=== PATIENT | female | born 1990 | race Caucasian/White ===

== ENCOUNTER 2017-03-29 01:50 | Emergency (ER) | payer MEDICAID ==
[~2017-03-29] VITALS: Ht 157.5 cm; Wt 86.5 kg
[~2017-03-29 01:50] MED LIST: ACET325T33 PO; IBUP800T25 PO; PERCOCET PO; PREN1TAB17 PO; PREN1TAB62 PO
[2017-03-29 02:00] VITALS: Ht 157.5 cm; Wt 86.5 kg
--- NOTE | 2017-03-29 02:53 | RADRPT ---
PROCEDURE: US OB. CLINICAL INDICATION: Pain. TECHNIQUE: Multiple sonographic images of the pelvis were obtained. Transabdominal imaging only w as performed. The images were reviewed on a PACS workstation. COMPARISON: None. FINDINGS: Single live intrauterine is identified. Cardiac activity is present with 136 beats per mi nute. There is a breech presentation. Measurements: BPD = 16 weeks 2 days. HC = 16 weeks 0 days. AC = 16 weeks 6 days. FL = 15 weeks 6 days. Estimated gestational age of approximately 16 weeks 2 days. The estimated date of delivery is 09/11/2017. The EFW = 152 g which is at the 72nd percentile. The placenta is posterior. There is a grossly normal amount of amniotic fluid with a MVP = 5.4 cm. IMPRESSION: Single live intrauterine gestation of approximately 16 weeks 2 days. RPTAT: HMVK .Romie Salcido MD, Date Time Electronically viewed and signed by .Romie Salcido MD, on 03/29/2017 02:53 .K/
[2017-03-29 03:09] LABS: BASOPHILS % 0.4 % (0.0-2.0); EOSINOPHILS # 0.1 10^3/ul (0.0-0.5); HEMATOCRIT 35.4 % (37.0-47.0); HEMOGLOBIN 12.6 g/dl (12.0-16.0); LYMPHOCYTES # 2.3 10^3/ul (0.8-2.9); LYMPHOCYTES % 28.5 % (15.0-51.0); MEAN CORPUSCULAR HEMOGLOBIN 32.1 pg (29.0-33.0); MEAN CORPUSCULAR HGB CONC 35.6 g/dl (32.0-37.0); MEAN CORPUSCULAR VOLUME 90.1 fl (82.0-101.0); MEAN PLATELET VOLUME 11.2 fl (7.4-10.4); MONOCYTE # 0.4 10^3/ul (0.3-0.9); MONOCYTES % 4.8 % (0.0-11.0); PLATELET COUNT 176 10^3/UL (140-415); RED BLOOD COUNT 3.93 10^6/ul (4.20-5.40); RED CELL DISTRIBUTION WIDTH 12.7 % (11.5-14.5); WHITE BLOOD COUNT 7.9 10^3/ul (4.8-10.8)
[2017-03-29 03:48] LABS: ADD UMIC YES; UR ASCORBIC ACID NEGATIVE (NEGATIVE); UR BACTERIA FEW /HPF (NONE SEEN); UR BILIRUBIN (Dip) NEGATIVE (NEGATIVE); UR BLOOD (Dip) NEGATIVE (NEGATIVE); UR CLARITY SLIGHTLY CLOUDY (CLEAR); UR COLOR YELLOW (YELLOW); UR GLUCOSE (Dip) NEGATIVE (NEGATIVE); UR KETONES (Dip) NEGATIVE (NEGATIVE); UR LEUKOCYTE ESTERASE (Dip) 2+ Leu/ul (NEGATIVE); UR NITRITE (Dip) NEGATIVE (NEGATIVE); UR RBC 1 /HPF (0-5); UR SPECIFIC GRAVITY (Dip) 1.013 (1.003-1.030); UR SQUAMOUS EPITHELIAL CELL FEW /HPF (FEW); UR TOTAL PROTEIN (Dip) NEGATIVE (NEGATIVE); UR UROBILINOGEN (Dip) NEGATIVE (NEGATIVE)
[2017-03-29] MEDS ORDERED: NITR-58 PO (04:02)
[2017-03-29] MEDS ORDERED: ACET500C5 PO (04:02)
--- NOTE | 2017-03-29 04:12 | ERD ---
ER Documentation Chief Complaint Date/Time DATE: 03/29/17 TIME: 04:09 Chief Complaint right pelvic pain,16t weeks HPI 26-year-old female who is 16 weeks A0 presents with right-sided pelvic pain that radiates to her left side that started tonight. She states that is sharp, intermittent, worse with any movement. She denies any fevers, chills, vomiting or diarrhea. She denies vaginal bleeding or pelvic pain. ROS All systems reviewed and are negative except as per history of present illness. Medications Home Meds Active Scripts Acetaminophen* (Tylophen*) 500 Mg Capsule, 1 CAP PO Q6H Y for PAIN AND OR ELEVATED TEMP, #20 CAP Prov:CHIKIS VILLAR PA-C 03/29/17 Nitrofurantoin Monohyd Macrocr* (Macrobid*) 100 Mg Capsr, 100 MG PO BID for 7 Days, CAP Prov:CHIKIS VILLAR PA-C 03/29/17 Acetaminophen* (Tylenol*) 325 Mg Tablet, 1 TAB PO Q6 Y for PAIN AND OR ELEVATED TEMP, #20 TAB Prov:MICHAEL BALDERAS PA-C 11/03/15 Oxycodone Hcl/Acetaminophen (Percocet) 1 Tab Tab, 2 TAB PO Q4H Y for PAIN LEVEL 6-10, #30 TAB 0 Refills Prov:GAEL MARTIN MD 10/16/15 Ibuprofen* (Ibuprofen*) 800 Mg Tab, 800 MG PO Q8, #20 TAB 0 Refills Prov:GAEL MARTIN MD 10/16/15 Reported Medications Vit-Iron Fumarate-FA ( Vitamin Tablet) 1 Each Tablet, 1 TAB PO DAILY, TAB 10/02/15 Vit-Iron Fumarate-FA ( Tablet) 1 Each Tablet, 1 TAB PO DAILY, TAB 07/11/15 Allergies Allergies: Coded Allergies: No Known Allergy (Unverified , 10/09/15) PMhx/Soc Medical and Surgical Hx: pt denies Medical Hx History of Surgery: Yes () Anesthesia Reaction: No Hx Neurological Disorder: No Hx Respiratory Disorders: No Hx Cardiac Disorders: No Hx Psychiatric Problems: No Hx Miscellaneous Medical Probl: No Hx Alcohol Use: No Hx Substance Use: No Hx Tobacco Use: No Smoking Status: Never smoker Physical Exam Vitals Vital Signs Date Time Temp Pulse Resp B/P Pulse Ox O2 Delivery O2 Flow Rate FiO2 03/29/17 02:00 97.3 73 18 112/63 99 Physical Exam General: Well-developed, well-nourished. The patient appears in no acute distress. HEENT: Head is normocephalic, atraumatic. No scleral icterus. Neck: Supple. Nontender. Lungs: Clear to auscultation. Normal air movement. Heart: Regular rate and rhythm. S1 and S2 are normal. No murmurs, gallops, or rubs. Abdomen: Soft, Right side is tender in the lower pelvic region, there is no rebound pain, no McBurney's tenderness nondistended. Bowel sounds are normoactive. Extremities: No clubbing or cyanosis. Normal pulses. Moving extremities x 4. No weakness. Neurologic: Alert and oriented 3. No focal deficits. Skin: Normal turgor. No rash or lesions. Result Diagram: 03/29/17 0235 Results 24 hrs Laboratory Tests Test 03/29/17 02:35 03/29/17 02:38 White Blood Count 7.910^3/ul Red Blood Count 3.9310^6/ul Hemoglobin 12.6g/dl Hematocrit 35.4% Mean Corpuscular Volume 90.1fl Mean Corpuscular Hemoglobin 32.1pg Mean Corpuscular Hemoglobin Concent 35.6g/dl Red Cell Distribution Width 12.7% Platelet Count 40095^3/UL Mean Platelet Volume 11.2fl Neutrophils % 65.0% Lymphocytes % 28.5% Monocytes % 4.8% Eosinophils % 1.0% Basophils % 0.4% Nucleated Red Blood Cells % 0.0/100WBC Neutrophils # (Manual) 5.210^3/ul Lymphocytes # 2.310^3/ul Monocytes # 0.410^3/ul Eosinophils # 0.110^3/ul Basophils # 0.010^3/ul Nucleated Red Blood Cells # 0.010^3/ul Urine Color YELLOW Urine Clarity SLIGHTLY CLOUDY Urine pH 6.0 Urine Specific [place] 1.013 Urine Ketones NEGATIVEmg/dL Urine Nitrite NEGATIVEmg/dL Urine Bilirubin NEGATIVEmg/dL Urine Urobilinogen NEGATIVEmg/dL Urine Leukocyte Esterase 2+Ronaldo/ul Urine Microscopic RBC 1/HPF Urine Microscopic WBC 2/HPF Urine Squamous Epithelial Cells FEW/HPF Urine Bacteria FEW/HPF Urine Hemoglobin NEGATIVEmg/dL Urine Glucose NEGATIVEmg/dL Urine Total Protein NEGATIVEmg/dl DIAGNOSTIC IMAGING REPORT Patient: EMMA LOPEZ : 1990 Age: 26 Sex: F MR #: [id number] [facility] #: [id number] DOS: 03/29/17 0222 Ordering MD: CHIKIS VILLAR PA-C Location: [facility] Room/Bed: PROCEDURE: US OB. CLINICAL INDICATION: Pain. TECHNIQUE: Multiple sonographic images of the pelvis were obtained. Transabdominal imaging only was performed. The images were reviewed on a PACS workstation. COMPARISON: None. FINDINGS: Single live intrauterine is identified. Cardiac activity is present with 136 beats per minute. There is a breech presentation. Measurements: BPD = 16 weeks 2 days. HC = 16 weeks 0 days. AC = 16 weeks 6 days. FL = 15 weeks 6 days. Estimated gestational age of approximately 16 weeks 2 days. The estimated date of delivery is 09/11/2017. The EFW = 152 g which is at the 72nd percentile. The placenta is posterior. There is a grossly normal amount of amniotic fluid with a MVP = 5.4 cm. IMPRESSION: Single live intrauterine gestation of approximately 16 weeks 2 days. RPTAT: HMVK .Romie Salcido MD, Date Time Electronically viewed and signed by .Romie Salcido MD, MD on 03/29/2017 02:53 .K/ Procedures/MDM 26-year-old female presents with a single live intrauterine at 16 weeks, with evidence of normal IUP, normal amniotic fluid. There is no evidence of placenta previa, placenta abruptio. Patient is hemodynamically stable. Urine is 2+ leukocyte esterase, will be treated given her , for urinary tract infection. Suspicion for acute appendicitis, ovarian torsion , PID, cervicitis, diverticulitis, bowel obstruction, acute hepatobiliary process is low. Departure Diagnosis: Primary Impression: UTI (urinary tract infection) Additional Impression: Pelvic pain during Condition: Good Patient Instructions: Understanding Urinary Tract Infections (UTIs) Additional Instructions: Patient was advised to follow-up with their OB in 3-4 days for a recheck examination. If they were to develop any worsening symptoms sooner, including heavy vaginal bleeding or pelvic pain, they are to return to the ER for further evaluation. CHIKIS VILLAR PA-C Mar 29, 2017 04:12
[2017-03-29 04:15] VITALS: BP 110/58; PULSE 75; RESP 17; TEMP 97.4
== END 2017-03-29 04:15 | disposition home or self-care (01) ==
LOC: FTE 01:50
DX: O23.42 Unspecified infection of urinary tract in pregnancy, second trimester (principal); R10.2 Pelvic and perineal pain; Z3A.18 18 weeks gestation of pregnancy
CPT/HCPCS: 36415; 76805; 81001; 84702; 85025; Z7502

== ENCOUNTER 2017-06-16 17:12 | Outpatient (CLI) | payer MEDICAID ==
[~2017-06-16] VITALS: Ht 160 cm; Wt 92.4 kg
[~2017-06-16 17:12] MED LIST changes: +ACET500C5 PO; +NITR-58 PO
[2017-06-16 17:34] VITALS: Ht 160 cm; Wt 92.4 kg
[2017-06-16 17:35] VITALS: BP 111/57; PULSE 85; RESP 18
[2017-06-16] MEDS ORDERED: CALC600T24 PO (18:26)
[2017-06-16 19:25] LABS: BASOPHILS % 0.2 % (0.0-2.0); EOSINOPHILS # 0.1 10^3/ul (0.0-0.5); EOSINOPHILS % 0.6 % (0.0-7.0); HEMATOCRIT 32.1 % (37.0-47.0); HEMOGLOBIN 10.9 g/dl (12.0-16.0); LYMPHOCYTES # 1.6 10^3/ul (0.8-2.9); LYMPHOCYTES % 19.3 % (15.0-51.0); MEAN CORPUSCULAR HEMOGLOBIN 32.2 pg (29.0-33.0); MEAN CORPUSCULAR VOLUME 94.7 fl (82.0-101.0); MEAN PLATELET VOLUME 10.7 fl (7.4-10.4); MONOCYTE # 0.4 10^3/ul (0.3-0.9); MONOCYTES % 4.8 % (0.0-11.0); NEUTROPHIL # 6.2 10^3/ul (1.6-7.5); NEUTROPHILS % 74.7 % (39.0-77.0); PLATELET COUNT 161 10^3/UL (140-415); RED BLOOD COUNT 3.39 10^6/ul (4.20-5.40); RED CELL DISTRIBUTION WIDTH 13.5 % (11.5-14.5); WHITE BLOOD COUNT 8.3 10^3/ul (4.8-10.8)
[2017-06-16 19:30] LABS: ADD UMIC YES; UR ASCORBIC ACID NEGATIVE (NEGATIVE); UR BILIRUBIN (Dip) NEGATIVE (NEGATIVE); UR BLOOD (Dip) NEGATIVE (NEGATIVE); UR CLARITY SLIGHTLY CLOUDY (CLEAR); UR COLOR YELLOW (YELLOW); UR GLUCOSE (Dip) NEGATIVE (NEGATIVE); UR KETONES (Dip) NEGATIVE (NEGATIVE); UR LEUKOCYTE ESTERASE (Dip) TRACE Leu/ul (NEGATIVE); UR MUCUS FEW /HPF (NONE SEEN); UR NITRITE (Dip) NEGATIVE (NEGATIVE); UR RBC 2 /HPF (0-5); UR SPECIFIC GRAVITY (Dip) 1.029 (1.003-1.030); UR SQUAMOUS EPITHELIAL CELL FEW /HPF (FEW); UR TOTAL PROTEIN (Dip) NEGATIVE (NEGATIVE); UR UROBILINOGEN (Dip) 1+ mg/dL (NEGATIVE)
--- NOTE | 2017-06-16 19:58 | RADRPT ---
PROCEDURE: OB ultrasound for biophysical profile CLINICAL INDICATION: Pelvic pain. Biophysical profile. . TECHNIQUE: Multiple sonographic images of the pelvis were obtained. Transabdominal imaging was pe rformed. Transvaginal images were obtained to assess cervical length. The images were reviewed on a PACS workstation. COMPARISON: None FINDINGS: breathing movement = 2/2 tone = 2/2 motion = 2/2 BRITTA = 2/2 Single intrauterine gestation is identified in cephalic position. heart rate is 136 bpm. Plac enta is posterior without evidence for abruption or previa. BRITTA measures 12.2 cm, within normal garcia its. The cervix is closed and measures 3.3 cm in length IMPRESSION: 1. Single live intrauterine gestation. 2. Biophysical profile = 8. 3. BRITTA = 12.2 cm. RPTAT: HDWR .Clint Norton MD, Date Time Electronically viewed and signed by .Clint Norton MD, on 06/16/2017 19:58 .R/
--- NOTE | 2017-06-16 20:13 | PN ---
Triage Information Date/Time June 16 2017 Reason for visit: Complain of vaginal pressure with walking Weeks of Gestation 224 /Para 2 para 1 Diabetes: none Hypertention: none Additional information Most probably patient with round ligament syndrome Objective Vital Signs Date Time Temp Pulse Resp B/P Pulse Ox O2 Delivery O2 Flow Rate FiO2 06/16/17 17:35 98.1 85 18 111/57 Room Air Heart Rate: 140's Contractions: None Results/Medications Result Diagram: 06/16/170 Results 24 hrs Laboratory Tests Test 06/16/17 17:30 06/16/17 19:20 Urine Color YELLOW Urine Clarity SLIGHTLY CLOUDY A Urine pH 6.0 Urine Specific [place] 1.029 Urine Ketones NEGATIVE Urine Nitrite NEGATIVE Urine Bilirubin NEGATIVE Urine Urobilinogen 1+ H Urine Leukocyte Esterase TRACE A Urine Microscopic RBC 2 Urine Microscopic WBC 2 Urine Squamous Epithelial Cells FEW Urine Mucus FEW A Urine Hemoglobin NEGATIVE Urine Glucose NEGATIVE Urine Total Protein NEGATIVE White Blood Count 8.3 Red Blood Count 3.39 L Hemoglobin 10.9 L Hematocrit 32.1 L Mean Corpuscular Volume 94.7 Mean Corpuscular Hemoglobin 32.2 Mean Corpuscular Hemoglobin Concent 34.0 Red Cell Distribution Width 13.5 Platelet Count 161 Mean Platelet Volume 10.7 H Neutrophils % 74.7 Lymphocytes % 19.3 Monocytes % 4.8 Eosinophils % 0.6 Basophils % 0.2 Nucleated Red Blood Cells % 0.0 Neutrophils # 6.2 Lymphocytes # 1.6 Monocytes # 0.4 Eosinophils # 0.1 Basophils # 0.0 Nucleated Red Blood Cells # 0.0 Imaging Results Single live intrauterine gestation. Biophysical profile = 8/8. BRITTA = 12.2 cm. GAEL MARTIN MD Jun 16, 2017 20:13
--- NOTE | 2017-06-16 21:21 | TRIAGE ---
OB Triage Datetime Report Generated by CPN: 06/16/2017 21:20 Datetime: 06/16/2017 20:30 Stage of : OB Triage Labor Evaluation Frequency: NONE Monitor Mode: External Duration (sec)2399: NONE Resting Tone [place]: Relaxed Contraction Comments: PT DENIES CRAMPING OR UC'S. ABDOMEN SOFT UPON PALPATION. Heart Rate FHR Baseline Rate: 140 Monitor Mode: External US Variability: Moderate 6-25 bpm Accelerations: 15X15 Datetime: 06/16/2017 20:15 Stage of : OB Triage Datetime: 06/16/2017 20:14 Monitor Mode: External Datetime: 06/16/2017 20:06 Stage of : OB Triage Pain Assessment Pain Scale: 3 Pain Presence: Constant Pain Type: Pressure Pain Location: Perineum Datetime: 06/16/2017 20:05 Monitor Mode: External US Datetime: 06/16/2017 19:30 Stage of : OB Triage Labor Evaluation Frequency: NONE Monitor Mode: External Duration (sec)2399: NONE Resting Tone [place]: Relaxed Contraction Comments: PT DENIES UC'S OR CRAMPING. ABDOMEN SOFT UPON PALPATION. Heart Rate FHR Baseline Rate: 140 Monitor Mode: External US Variability: Moderate 6-25 bpm Accelerations: 15X15 Datetime: 06/16/2017 19:18 Monitor Mode: External Contraction Comments: ABDOMEN SOFT UPON PALPATION Datetime: 06/16/2017 18:30 Stage of : OB Triage Maternal Assessment Level of Consciousness: Fully Conscious Labor Evaluation Frequency: NONE Monitor Mode: External Resting Tone [place]: Relaxed Heart Rate FHR Baseline Rate: 135 Monitor Mode: External US Variability: Moderate 6-25 bpm Accelerations: 15X15 Decelerations: None Category: Category I Pain Assessment Pain Scale: 0 Pain Goal: 3 Vaginal Exam Membrane Status: Intact Vaginal Bleeding: None Datetime: 06/16/2017 18:02 Assessment Type: Triage Maternal Assessment Level of Consciousness: Fully Conscious DTR's/Clonus: DTRs 2+; No Clonus Headache: Denies Blurred Vision: No Respiratory Effort: Unlabored; Regular Rhythm; Equal Expansion Breath Sounds, Left: Clear and Equal Breath Sounds, Right: Clear and Equal Nausea/Vomiting: Denies RUQ Epigastric Pain: Denies Lower Extremities Edema: None Degree: None Upper Extremities Edema: None Degree: None Facial Edema: None Fall Risk Assessment History of Falling: (0) No Secondary Diagnosis: (0) No Ambulatory Aid: (0) Bedrest/Nurse Assist IV Therapy: (0) No Gait: (0) Normal/Bedrest/Immobile Mental Status: (0) Oriented to Own Ability Fall Score: 0 Fall Risk Score Definition: No Risk: No action required Datetime: 06/16/2017 18:00 Time of Arrival: 06/16/2017 17:04 EGA: 27.1 Arrived By: Ambulatory Arrived From: Home Chief Complaint: PT HERE C/O DFM, AND VAG. PAIN Movement: Present Contractions: Denies/Absent Rupture of Membranes: Denies Vaginal Bleeding: None Vaginal Discharge: Denies Recent Sexual Intercouse: Denies Abdominal Trauma: Not Applicable Patient Complaints: None Time Provider Notified: 06/16/2017 18:30 Provider Notified: LOKESH Initial Plan: CBC/UA/BPP/CVL Datetime: 06/16/2017 17:31 Monitor Mode: External Monitor Mode: External US
== END 2017-06-16 20:55 | disposition home or self-care (01) ==
LOC: OBT 17:12 → L-D 17:13 → OBT 18:10
PROVIDERS: ATTEND Obstetrics & Gynecology
DX: O26.892 Other specified pregnancy related conditions, second trimester (principal); R10.2 Pelvic and perineal pain; Z3A.22 22 weeks gestation of pregnancy
CPT/HCPCS: 76817; 76818; 81001; 85025; Z7500; G0463

== ENCOUNTER 2017-07-19 19:58 | Outpatient (CLI) | payer MEDICAID ==
[~2017-07-19] VITALS: Ht 157.5 cm; Wt 95.0 kg
[~2017-07-19 19:58] MED LIST changes: -ACET325T33 PO; -ACET500C5 PO; +CALC600T24 PO; -IBUP800T25 PO; -NITR-58 PO; -PERCOCET PO; -PREN1TAB17 PO
[2017-07-19 21:00] VITALS: BP 125/59; PULSE 95; RESP 18
[2017-07-19 21:01] VITALS: Ht 157.5 cm; Wt 95.0 kg
[2017-07-19] MEDS: LACTATED RINGER'S 1,000 ML IV SCH ×2 (22:30→23:08)
--- NOTE | 2017-07-19 22:39 | RADRPT ---
PROCEDURE: Obstetrical ultrasound greater than 14 weeks CLINICAL INDICATION: Contractions. Estimated weight TECHNIQUE: Real time sonographic imaging of the gravid uterus is performed transabdominally and mu ltiple static reyes scale and Doppler images are submitted for review as are measurements. The image s are reviewed on the PACS. COMPARISON: 06/16/2017. 03/29/2017 FINDINGS: There is a single living intrauterine gestation in cephalic presentation. The heart beat is estimated at 144 bpm. The measurements are as follows: BPD:8.10 cm HC:30.33 cm AC:28.72 cm FL:6.26 cm Estimated gestational age is 32 weeks 6 days. The estimated date of delivery is 09/07/2017. The estimated weight is 2035 grams. Placenta is posterior fundal and grade2. There is no evidence of placenta previa or abruption. RPTAT:HJJR IMPRESSION: 1. Single viable intrauterine gestation in cephalic presentation estimated at 32 weeks 6 days, appro priate interval growth compared to the previous studies with the estimated date of delivery 09/07/19 18. 2. Estimated weight of 2035 g is approximately the 67th percentile. Physician Lenore Date Time Electronically viewed and signed by Physician Lenore on 07/19/2017 22:39 /
--- NOTE | 2017-07-19 22:44 | RADRPT ---
PROCEDURE: OB ultrasound for biophysical profile CLINICAL INDICATION: , contractions. TECHNIQUE: Multiple sonographic images of the pelvis were obtained. Transabdominal and endovagina l views of the gravid uterus are available for review. The images were reviewed on a PACS workstati on. COMPARISON: 06/16/2017. FINDINGS: breathing movement = 2/2 tone = 2/2 motion = 2/2 Amniotic fluid = 2/2 BRITTA = 17.2 cm Single live intrauterine in cephalic presentation with cardiac activity (146 bpm). Posterior/fundal placenta, grade 2. The cervix is closed, measuring 4.5 cm in length. IMPRESSION: 1. Single viable intrauterine gestation. 2. Biophysical profile = 8/8. 3. BRITTA = 17.2 cm. RPTAT: HTAR .Tejinder Wahl MD, Date Time Electronically viewed and signed by .Tejinder Wahl MD, on 07/19/2017 22:44 .R/
[2017-07-19 22:59] LABS: ADD UMIC NO; UR ASCORBIC ACID NEGATIVE (NEGATIVE); UR BACTERIA FEW /HPF (NONE SEEN); UR BILIRUBIN (Dip) NEGATIVE (NEGATIVE); UR BLOOD (Dip) NEGATIVE (NEGATIVE); UR CLARITY SLIGHTLY CLOUDY (CLEAR); UR COLOR YELLOW (YELLOW); UR GLUCOSE (Dip) NEGATIVE (NEGATIVE); UR KETONES (Dip) NEGATIVE (NEGATIVE); UR LEUKOCYTE ESTERASE (Dip) NEGATIVE Leu/ul (NEGATIVE); UR MUCUS FEW /HPF (NONE SEEN); UR NITRITE (Dip) NEGATIVE (NEGATIVE); UR RBC 1 /HPF (0-5); UR SPECIFIC GRAVITY (Dip) 1.024 (1.003-1.030); UR TOTAL PROTEIN (Dip) NEGATIVE (NEGATIVE); UR UROBILINOGEN (Dip) NEGATIVE (NEGATIVE)
[2017-07-20] MEDS ORDERED: LACTATED RINGER'S 1,000 ML IV SCH (02:00)
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
== END 2017-07-20 01:29 | disposition home or self-care (01) ==
LOC: OBT 19:58 → L-D 20:10 → OBT 07-20 01:29
PROVIDERS: ATTEND Obstetrics & Gynecology
DX: O62.9 Abnormality of forces of labor, unspecified (principal); Z3A.31 31 weeks gestation of pregnancy
CPT/HCPCS: 76815; 76817; 76818; 81001; 82731; 87086; 96360; 96361; 96372; J7120; Z7500; 81003; G0463

== ENCOUNTER 2017-07-26 20:00 | Outpatient (CLI) | payer MEDICAID ==
[~2017-07-26] VITALS: Ht 160 cm; Wt 97.2 kg
[2017-07-26 20:13] VITALS: BP 122/61; PULSE 90; RESP 18; Ht 160 cm; Wt 97.2 kg
[2017-07-26 21:34] LABS: ADD UMIC YES; UR ASCORBIC ACID NEGATIVE (NEGATIVE); UR BACTERIA FEW /HPF (NONE SEEN); UR BILIRUBIN (Dip) NEGATIVE (NEGATIVE); UR BLOOD (Dip) NEGATIVE (NEGATIVE); UR CLARITY CLEAR (CLEAR); UR COLOR YELLOW (YELLOW); UR GLUCOSE (Dip) NEGATIVE (NEGATIVE); UR KETONES (Dip) NEGATIVE (NEGATIVE); UR LEUKOCYTE ESTERASE (Dip) TRACE Leu/ul (NEGATIVE); UR NITRITE (Dip) NEGATIVE (NEGATIVE); UR RBC 0 /HPF (0-5); UR SPECIFIC GRAVITY (Dip) 1.012 (1.003-1.030); UR SQUAMOUS EPITHELIAL CELL FEW /HPF (FEW); UR TOTAL PROTEIN (Dip) NEGATIVE (NEGATIVE); UR UROBILINOGEN (Dip) 1+ mg/dL (NEGATIVE)
--- NOTE | 2017-07-26 22:16 | RADRPT ---
PROCEDURE: US biophysical profile. CLINICAL INDICATION: Decreased movement. well-being. TECHNIQUE: Multiple sonographic images of the uterus were obtained. The images were revi ewed on a PACS workstation. COMPARISON: 07/19/2017. FINDINGS: There is a single live intrauterine gestation. heart rate is 131 beats per minute. The position is breech, head is maternal right. The placenta is posterior, grade 1-2. The BRITTA is 16.1 cm. The cervix is closed and measures 3.6 cm in length. Breathing Movement: 2 Gross Body Movement: 2 Tone: 2 Qualitative Amniotic Fluid Volume: 2 TOTAL: 8 IMPRESSION: 1. Single viable intrauterine gestation. 2. Biophysical profile = 03/09. 3. BRITTA = 16.1 cm. 4. The presentation is breech. RPTAT: HFN .Jennifer Kerr MD, MD Date Time Electronically viewed and signed by .Jennifer Kerr MD, MD on 07/26/2017 22:16 .N/
[2017-07-26] MEDS ORDERED: ACETAMINOPHEN 325 MG TAB PO ONE (23:00)
[2017-07-26] MEDS ORDERED: ACETAMINOPHEN 650 MG SUPP PR ONE (23:12)
[2017-07-26] MEDS ORDERED: ACETAMINOPHEN 325 MG TAB ONE (23:13)
--- NOTE | 2017-07-27 02:29 | PN ---
Triage Information Date/Time July 26, 2017 Late entry note Reason for visit: Uterine contractions Weeks of Gestation 32 weeks and 4 days /Para 2 para 1 Diabetes: none Hypertention: none Additional information 27-year-old with IUP at 32 weeks and 4 days with history of 1 9 months ago presents with complaint of uterine contractions and lower abdominal bilateral pain. She denies any nausea vomiting, denies any leaking of fluid, vaginal bleeding or decreased movement. She denies any urinary symptoms. Denies any fever or chills. She had been here a week ago due to complaint of contractions and had been ruled out for labor and was discharged home. Objective Vital Signs Date Time Temp Pulse Resp B/P Pulse Ox O2 Delivery O2 Flow Rate FiO2 07/26/17 20:13 98.1 90 18 122/61 Room Air Heart Rate: 130's Contractions: >10 Minutes Apart Exam General appearance: Alert and oriented 4. Patient does not appear to be in any acute distress. Abdomen: Soft, gravid, fundal height consistent with gestational age. No tenderness, no rebound tenderness, no guarding, no rigidity, no evidence of acute abdomen, no CVA tenderness. NST: Category 1 next No contraction seen on the monitor. Speculum examination: Cervix closed and long Transvaginal cervical length: 3.5 cm fibronectin negative Results/Medications Results 24 hrs Laboratory Tests Test 07/26/17 21:13 Urine Color YELLOW Urine Clarity CLEAR Urine pH 8.0 Urine Specific [place] 1.012 Urine Ketones NEGATIVE Urine Nitrite NEGATIVE Urine Bilirubin NEGATIVE Urine Urobilinogen 1+ H Urine Leukocyte Esterase TRACE A Urine Microscopic RBC 0 Urine Microscopic WBC 1 Urine Squamous Epithelial Cells FEW Urine Bacteria FEW A Urine Hemoglobin NEGATIVE Urine Glucose NEGATIVE Urine Total Protein NEGATIVE Fibronectin NEGATIVE Imaging Results PROCEDURE: US biophysical profile. CLINICAL INDICATION: Decreased movement. well-being. TECHNIQUE: Multiple sonographic images of the uterus were obtained. The images were reviewed on a PACS workstation. COMPARISON: 07/19/2017. FINDINGS: There is a single live intrauterine gestation. heart rate is 131 beats per minute. The position is breech, head is maternal right. The placenta is posterior, grade 1-2. The BRITTA is 16.1 cm. The cervix is closed and measures 3.6 cm in length. Breathing Movement: 2 Gross Body Movement: 2 Tone: 2 Qualitative Amniotic Fluid Volume: 2 TOTAL: 8 IMPRESSION: 1. Single viable intrauterine gestation. 2. Biophysical profile = 03/09. 3. BRITTA = 16.1 cm. 4. The presentation is breech. RPTAT: HFN Disposition: Discharge Assessment/Plan IUP at 32 weeks and 4 days Lower abdominal pain related to round ligament pain No evidence of UTI or acute abdomen Not in labor fibronectin negative Transvaginal cervical length more than 3 cm No contraction on the monitor Patient was reassured DC home Discussed regarding adequate hydration and follow-up within 24-48 hours with her primary OB Advised the patient to return to triage if she has worsening of current symptoms or any other symptoms including eating of fluid, vaginal bleeding, increased uterine contractions feeling more abdominal pain or any other concerns. Patient verbalized understanding. All questions are answered. ROSE MARIE SWENSON MD Jul 27, 2017 02:29
== END 2017-07-26 23:52 | disposition home or self-care (01) ==
LOC: OBT 20:00 → L-D 20:00 → OBT 23:52
PROVIDERS: ATTEND Obstetrics & Gynecology
DX: O62.9 Abnormality of forces of labor, unspecified (principal); Z3A.32 32 weeks gestation of pregnancy
CPT/HCPCS: 36415; 76817; 76818; 81001; 82731; 96365; Z7500; Z7610; G0463

== ENCOUNTER 2017-08-10 16:21 | Outpatient (CLI) | END 2017-08-10 17:56 | disposition home or self-care (01) ==

== ENCOUNTER 2017-08-10 18:00 | Emergency (ER) | END 2017-08-10 23:07 | disposition home or self-care (01) ==

== ENCOUNTER 2017-09-02 18:14 | Outpatient (CLI) | END 2017-09-02 23:56 | disposition home or self-care (01) ==

== ENCOUNTER 2017-09-05 23:40 | Observation (INO) | END 2017-09-06 16:20 | disposition home or self-care (01) ==

== ENCOUNTER 2017-09-09 08:53 | Inpatient (IN) | END 2017-09-12 15:25 | disposition home or self-care (01) | DRG 766 ==